=== PATIENT | male | born 1940 | race Caucasian/White ===

== ENCOUNTER 2016-07-12 06:41 | Day surgery (SDC) | payer MEDICARE ==
[~2016-07-12] VITALS: Ht 172.7 cm; Wt 115.9 kg
[~2016-07-12 06:41] MED LIST: BUME1TAB PO; CALCTAB98 PO; CARD240C6 PO; CO Q100C9 PO; FINA5TAB77 PO; LANTINJ SQ; LORA-392 PO; MACR100C PO; METF-324 PO; PARO40TA PO; POTA1080 PO; PRAV20TA PO; SOTA80TA PO; ST JTAB PO; SYNT25TA PO; TAB-TAB PO; TAMS0.4C67 PO; VITA100T5 PO; ZOFR4TAB3 PO
[2016-07-12] MEDS ORDERED: LORA-392 PO (07:29)
[2016-07-12] MEDS ORDERED: FISH1000 (07:29)
[2016-07-12] MEDS ORDERED: SYNT25TA PO (07:29)
[2016-07-12] MEDS ORDERED: ASPI1TAB69 PO (07:29)
[2016-07-12] MEDS ORDERED: POTA1080 (07:29)
[2016-07-12] MEDS ORDERED: CALC600T10 PO (07:29)
[2016-07-12] MEDS ORDERED: ALPR.5 PO (07:29)
[2016-07-12] MEDS ORDERED: CARD240C6 PO (07:29)
[2016-07-12] MEDS ORDERED: LANTINJ SQ ×2 (07:29)
[2016-07-12] MEDS ORDERED: BUME1TAB26 PO (07:29)
[2016-07-12] MEDS ORDERED: MULT1TAB84 PO (07:29)
[2016-07-12] MEDS ORDERED: CO Q100C9 (07:29)
[2016-07-12] MEDS ORDERED: PAXI40TA PO (07:29)
[2016-07-12] MEDS ORDERED: METF1000 PO (07:29)
[2016-07-12] MEDS ORDERED: PRAV20TA2 PO (07:29)
[2016-07-12] MEDS ORDERED: BETA80TA PO (07:29)
[2016-07-12 07:36] VITALS: BP 131/74; PULSE 72; RESP 20; TEMP 97.6; O2SAT 93
[2016-07-12] MEDS ORDERED: SODIUM CHLORIDE 0.9% 1000 ML IV SCH (07:45)
[2016-07-12 07:50] LABS: AUTOMATED NEUTROPHIL # 6.7 TH/MM3 (1.8-7.7); BASOPHIL # 0.1 TH/MM3 (0-0.2); BASOPHIL % 0.9 % (0.0-2.0); EOSINOPHIL # 0.3 TH/MM3 (0-0.4); HEMATOCRIT 41.8 % (39.0-51.0); HEMO FLAGS DIFF FINAL; LYMPH % 20.1 % (9.0-44.0); MEAN CELL VOLUME 88.9 FL (80.0-100.0); MEAN CORPUSCULAR HEMOGLOBIN 30.7 PG (27.0-34.0); MEAN CORPUSCULAR HGB CONC 34.5 % (32.0-36.0); MONO % 7.3 % (0.0-8.0); NEUT % 68.7 % (16.0-70.0); PLATELET COUNT 298 TH/MM3 (150-450); RED CELL DISTRIBUTION WIDTH 13.6 % (11.6-17.2); WHITE BLOOD COUNT 9.7 TH/MM3 (4.0-11.0)
[2016-07-12 08:02] LABS: PROTHROMBIN TIME - PATIENT 10.7 SEC (9.8-11.6)
[2016-07-12 08:03] LABS: APTT (PATIENT) 27.2 SEC (24.3-30.1)
[2016-07-12 08:10] LABS: BICARBONATE 27.6 MEQ/L (21.0-32.0); POTASSIUM 3.4 MEQ/L (3.5-5.1)
[2016-07-12] MEDS ORDERED: fentaNYL CITRATE 250 MCG/5 ML AMP ONE (08:14)
[2016-07-12] MEDS ORDERED: LEVOFLOXACIN 500 MG PREMIX INJ 100 ML IV ONE (08:14)
[2016-07-12] MEDS ORDERED: MIDAZOLAM HCL 5 MG/5 ML VIAL ONE (08:14)
[2016-07-12 09:20] VITALS: BP 138/77; PULSE 68; RESP 18; TEMP 97.9; O2SAT 98
--- NOTE | 2016-07-12 09:26 | PD.RAD ---
Post Procedure Progress Note Pre Procedure Diagnosis: (1) Urinary incontinence Post Procedure Diagnosis: (1) Urinary incontinence Procedure Date: Jul 12, 2016 Supervising Radiologist: César Bernabe Proceduralist/Assist: RT Magalis(R), RT Tyler(R) Anesthesia: Local, Conscious Sedation Plan of Activity Patient to Unit: ROPU Patient Condition: Good See PACS Report for procedural detail/treatment Drainage Procedure Procedure 1 Imaging Guidance: Fluoroscopy Procedure Type: Suprapubic Tube Procedure: Placement Occitan: 22 Drainage: [place] drainage Fluid Description: César Johnson MD Jul 12, 2016 09:26
[2016-07-12 09:35] VITALS: BP 139/87; PULSE 66; RESP 18; O2SAT 97
[2016-07-12 10:05] VITALS: BP 127/77; PULSE 61; RESP 18; O2SAT 93
[2016-07-12 10:35] VITALS: BP 127/78; PULSE 63; RESP 18; O2SAT 95
[2016-07-12] MEDS ORDERED: IOHEXOL 350 MG/ML 50 ML BTL (for RAD DIAG) OTHER ONE (10:45)
--- NOTE | 2016-07-12 11:20 | RADRPT ---
EXAM DATE/TIME: 07/12/2016 08:18 [facility] COMPARISON: No previous studies available for comparison. INDICATIONS : Patient presents with neurogenic bladder in need of suprapubic tube placement . MEDICAL HISTORY : Neurogenic bladder BPH GERD DM OR Renal calculi SURGICAL HISTORY : Cardiac stent Right hip sx Kidney sx ENCOUNTER: Initial ACUITY: 2 months PAIN SCORE: 3/10 LOCATION: Left flank FLUORO TIME: 2.7 minutes IMAGE SERIES: 2 SEDATION TIME: 30 minutes CONTRAST: 10 cc Omnipaque 350 (iohexol) Suprapubic tube MEDICATION(S): 1.) 250 mcg fentanyl (Sublimaze) IV 2.) 500 mg levofloxacin (Levaquin) IV 3.) 5 mg midazolam (Versed) IV DEVICE(S): 1.) Lincoln catheter 16FR PROCEDURE : 1. Ultrasound localization of the bladder. 2. Suprapubic catheter placement. 3. Conscious sedation with continuous EKG and oximetry monitoring. The risks, benefits and alternatives to the procedure were explained and verbal and written consent w as obtained. The site was prepped in sterile fashion. Full sterile technique was used, including ca p, mask, sterile gloves and gown and a large sterile sheet. Hand hygiene and 2% chlorhexidine and/or betadine/alcohol prep was utilized per protocol for cutaneous antisepsis. The skin and subcutaneous tissues were infiltrated with local anesthetic solution. Utilizing ultrasound and fluoroscopic guidance the urinary bladder was localized. Just above the pub ic symphysis in the midline a dermatotomy was made and serial dilatation was performed to accept a 14 Nigerian Lincoln catheter. The balloon was inflated and positive contrast was injected to document intr aluminal position. Conscious sedation was performed with the prescribed dosages and duration as above in the presence of an independent trained radiology nurse to assist in the monitoring of the patient. EKG and oximetry remained stable throughout the procedure. The patient tolerated the procedure well and there were n o complications. The patient was sent to post anesthesia recovery in stable condition. CONCLUSION: Uncomplicated suprapubic catheter placement. César Bernabe MD on July 12, 2016 at 11:18 Board Certified Radiologist. This report was verified electronically.
== END 2016-07-12 11:49 | disposition home or self-care (01) ==
LOC: HROP 06:41 → HRIP 06:46 → HROP 11:49
PROVIDERS: ATTEND Urology
DX: R32 Unspecified urinary incontinence (principal); N31.9 Neuromuscular dysfunction of bladder, unspecified; N40.0 Benign prostatic hyperplasia without lower urinary tract symptoms; K21.9 Gastro-esophageal reflux disease without esophagitis; E11.9 Type 2 diabetes mellitus without complications; I48.91 Unspecified atrial fibrillation; I10 Essential (primary) hypertension; Z87.442 Personal history of urinary calculi; Z95.5 Presence of coronary angioplasty implant and graft
CPT/HCPCS: 51102; 77002; 80048; 85025; 85610; 85730; 99152; 99153; C1769; C1894; J1956; J2250; J3010; J7030; Q9967; 75989

== ENCOUNTER 2016-07-13 07:39 | Day surgery (SDC) | payer MEDICARE ==
[~2016-07-13] VITALS: Ht 172.7 cm; Wt 115.9 kg
[~2016-07-13 07:39] MED LIST changes: +ALPR.5 PO; +ASPI1TAB69 PO; +BETA80TA PO; -BUME1TAB PO; +BUME1TAB26 PO; +CALC600T10 PO; -CALCTAB98 PO; +CO Q100C9; -CO Q100C9 PO; -FINA5TAB77 PO; +FISH1000; -MACR100C PO; -METF-324 PO; +METF1000 PO; +MULT1TAB84 PO; -PARO40TA PO; +PAXI40TA PO; +POTA1080; -POTA1080 PO; -PRAV20TA PO; +PRAV20TA2 PO; -SOTA80TA PO; -ST JTAB PO; -TAB-TAB PO; -TAMS0.4C67 PO; -VITA100T5 PO; -ZOFR4TAB3 PO
[2016-07-13 07:59] VITALS: BP 124/69; PULSE 72; RESP 20; TEMP 98.8; O2SAT 94
[2016-07-13] MEDS ORDERED: SODIUM CHLOR 0.9% 1000 ML INJ 1,000 ML IV SCH (08:15)
[2016-07-13] MEDS ORDERED: LEVOFLOXACIN 500 MG PREMIX INJ 100 ML IV ONE (09:32)
[2016-07-13] MEDS ORDERED: MIDAZOLAM HCL 5 MG/5 ML VIAL ONE (09:33)
[2016-07-13] MEDS ORDERED: fentaNYL CITRATE 250 MCG/5 ML AMP ONE (09:33)
[2016-07-13] MEDS ORDERED: IOHEXOL 350 MG/ML 50 ML BTL (for RAD DIAG) ONE (10:51)
[2016-07-13 10:53] VITALS: BP 109/49; PULSE 65; RESP 16; TEMP 97.3; O2SAT 93
--- NOTE | 2016-07-13 10:56 | PD.RAD ---
Post Procedure Progress Note Pre Procedure Diagnosis: (1) Urinary incontinence Post Procedure Diagnosis: (1) Urinary incontinence Procedure Date: Jul 13, 2016 Supervising Radiologist: César Bernabe Proceduralist/Assist: Jeffrey Nguyễn RT(R), RT Tyler(R) Anesthesia: Local, Conscious Sedation Plan of Activity Patient to Unit: ROPU Patient Condition: Good See PACS Report for procedural detail/treatment Drainage Procedure Procedure 1 Imaging Guidance: Fluoroscopy Procedure Type: Suprapubic Tube Procedure: Placement Belarusian: 16 Fluid Description: Clear, Bloody Additional Detail: Initial suprapubic placed on 07/12 fell out because of spontaneous balloon deflation. New parra inserted. César Bernabe MD Jul 13, 2016 10:56
[2016-07-13 11:08] VITALS: BP 112/70; PULSE 65; RESP 19; O2SAT 95
[2016-07-13 11:38] VITALS: BP 110/57; PULSE 61; RESP 19; O2SAT 95
[2016-07-13 12:08] VITALS: BP 99/52; PULSE 52; RESP 18; O2SAT 99
--- NOTE | 2016-07-13 12:37 | RADRPT ---
EXAM DATE/TIME: 07/13/2016 10:46 [facility] COMPARISON: SUPRAPUBIC TUBE PLACEMENT, July 12, 2016, 8:18. INDICATIONS : Patient with neurogenic bladder in need of suprapubic tube placement. MEDICAL HISTORY : BPH, Renal stones, UTI, Hypothyroid, Diabetes, [place], GERD SURGICAL HISTORY : Cardiac stent, Right hip surgery, Right kidney surgery ENCOUNTER: Subsequent ACUITY: 2 months PAIN SCORE: 0/10 FLUORO TIME: 1.7 minutes IMAGE SERIES: 3 SEDATION TIME: 30 minutes CONTRAST: 10 cc Omnipaque 350 (iohexol) MEDICATION(S): 1.) 5 mg midazolam (Versed) IV 2.) 250 mcg fentanyl (Sublimaze) IV Prophylactic antibiotics were administered with appropriate pre-procedure timing. Vancomycin within 2 hrs of procedure, Ancef (or alternative) within 1 hr of procedure. DEVICE(S): 1.) Lincoln catheter 16F PROCEDURE : 1. Ultrasound localization of the bladder. 2. Suprapubic catheter placement. 3. Conscious sedation with continuous EKG and oximetry monitoring. The risks, benefits and alternatives to the procedure were explained and verbal and written consent w as obtained. The site was prepped in sterile fashion. Full sterile technique was used, including ca p, mask, sterile gloves and gown and a large sterile sheet. Hand hygiene and 2% chlorhexidine and/or betadine/alcohol prep was utilized per protocol for cutaneous antisepsis. The skin and subcutaneous tissues were infiltrated with local anesthetic solution. Utilizing ultrasound and fluoroscopic guidance the urinary bladder was localized. Just above the pub ic symphysis in the midline a dermatotomy was made and serial dilatation was performed to accept a 14 Georgian Lincoln catheter. The balloon was inflated and positive contrast was injected to document intr aluminal position. Conscious sedation was performed with the prescribed dosages and duration as above in the presence of an independent trained radiology nurse to assist in the monitoring of the patient. EKG and oximetry remained stable throughout the procedure. The patient tolerated the procedure well and there were n o complications. The patient was sent to post anesthesia recovery in stable condition. CONCLUSION: Uncomplicated suprapubic catheter placement. César Bernabe MD on July 13, 2016 at 12:34 Board Certified Radiologist. This report was verified electronically.
[2016-07-13 14:00] VITALS: BP 116/59; PULSE 59; RESP 19; O2SAT 99
[2016-07-13] MEDS ORDERED: BUMETANIDE 1 MG TAB PO ONE (14:00)
== END 2016-07-13 14:25 | disposition home or self-care (01) ==
LOC: HROP 07:39 → HRIP 07:39 → HROP 14:25
PROVIDERS: ATTEND Radiology Diagnostic Radiology
DX: N31.9 Neuromuscular dysfunction of bladder, unspecified (principal); R32 Unspecified urinary incontinence; N40.0 Benign prostatic hyperplasia without lower urinary tract symptoms; K21.9 Gastro-esophageal reflux disease without esophagitis; E11.9 Type 2 diabetes mellitus without complications; E03.9 Hypothyroidism, unspecified; Z87.442 Personal history of urinary calculi; Z95.5 Presence of coronary angioplasty implant and graft
CPT/HCPCS: 51705; 77002; 99152; 99153; C1769; C1894; J1956; J2250; J3010; J7030; Q9967; 75989

== ENCOUNTER 2016-07-16 15:53 | Emergency (ER) | payer MEDICARE ==
[~2016-07-16] VITALS: Ht 170.2 cm; Wt 113.6 kg
[2016-07-16 15:56] VITALS: BP 167/86; PULSE 80; RESP 20; TEMP 97.3; O2SAT 97
--- NOTE | 2016-07-16 16:27 | PD ---
Physical Exam Date Seen by Provider: Jul 16, 2016 Time Seen by Provider: 16:24 Narrative 76 y/o male with recent Supra pubic urinary catheter placement on July [address] Bernabe. Patient reports that the Catheter appears to cut and leaking. The catheter is stitched in place, so Home Health nurse was unable to replace it. Patient has no pain or fever. V/S Stable Patient awaiting bed placement. Data Data Last Documented VS Vital Signs Date Time Temp Pulse Resp B/P Pulse Ox O2 Delivery O2 Flow Rate FiO2 07/16/16 15:56 97.3 80 20 167/86 97 Room Air [facility] Medical Record Reviewed: Yes Supervised Visit with JEANNA: Yes Condition: Stable Olayinka Bocanegra Jul 16, 2016 16:27
--- NOTE | 2016-07-16 18:52 | PD ---
HPI Chief Complaint: Infection Control Coordinator Problem Time Seen by Provider: 16:51 Travel History International Travel<30 days: No Contact w/Intl Traveler<30days: No Traveled to known affect area: No History of Present Illness HPI Patient is a 76 year old male who comes in because his accidently cut his suprapubic catheter. He had the catheter placed July 12, and then replaced July 13 because the balloon had not been inflated. His was changing the dressing today and was trying to cut the gauze around the catheter and accidentally cut the catheter itself. There is still a stump in place and it is draining urine. He has no complaints at this time. PFSH Past Medical History Hx Anticoagulant Therapy: Yes Arthritis: Yes Atrial Fibrillation: Yes Blood Disorders: No Anxiety: Yes Depression: Yes (TAKES PAXIL) Cancer: No Cardiovascular Problems: Yes ([place] 2006, ) Diabetes: Yes (TYPE 2 ) Patient Takes Glucophage: Yes Endocrine: Yes Gastrointestinal Disorders: Yes GERD: Yes Genitourinary: Yes (KIDNEY PROBLEMS SINCE CHILDHOOD ) Hypertension: Yes Immune Disorder: No Kidney Stones: Yes Musculoskeletal: Yes Neurologic: Yes Psychiatric: Yes Reproductive: No Respiratory: Yes Sleep Apnea: Yes Thyroid Disease: Yes (HYPOTHYROIDISM) Tetanus Vaccination: > 5 Years Past Surgical History Abdominal Surgery: No Cardiac Surgery: Yes Coronary Stent: Yes Ear Surgery: No Endocrine Surgery: No Eye Surgery: No Genitourinary Surgery: Yes (MULTIPLE KIDNEY SURGERIES ) Gynecologic Surgery: No Joint Replacement: Yes (RIGHT HIP) Oral Surgery: No Thoracic Surgery: No Other Surgery: Yes Social History Alcohol Use: Yes (RARELY) Tobacco Use: No Substance Use: No Allergies-Medications (Allergen,Severity, Reaction): Coded Allergies: Dye, Prep (Verified Allergy, Severe, RASH, 07/16/16) Sulfa (Verified Allergy, Severe, 07/16/16) Amiodarone (Verified Allergy, Intermediate, Hives, 07/16/16) Hctz (Verified Allergy, Intermediate, Hives, 07/16/16) Citalopram (Verified Allergy, Mild, Dizziness, 07/16/16) Levaquin (Verified Allergy, Mild, 07/16/16) Triamterene (Verified Allergy, Mild, Nausea/Vomiting, 07/16/16) Penicillin (Verified Allergy, Unknown, RASH, 07/16/16) Simvastatin (Verified Allergy, Unknown, RASH, 07/16/16) Uncoded Allergies: IVP DYE (Allergy, Unknown, 12/03/02) NUCLEAR MED INJECTION (Allergy, Unknown, 02/12/04) Reported Meds & Prescriptions Reported Meds & Active Scripts Active Reported Fish Oil ([place]-3 Fatty Acids) 1,000 Mg Cap DAILY Calcium + D3 (Calcium Carbonate-Cholecalciferol) 600-200 Mg-Unit Tab 1 Tab PO DAILY Co Q 10 (Coenzyme Q10 (Ubidecarenone)) 100 Mg Cap DAILY Multivitamin Adults (Multiple Vitamins W/ Minerals) 1 Tab 1 Tab PO DAILY Xanax (Alprazolam) 0.5 Mg Tab 0.5 Mg PO Q8H PRN Ativan (Lorazepam) 0.5 Mg Tab 0.5 Mg PO Q6H PRN Potassium Citrate ER 1,080 Mg Tab 3,300 DAILY Lantus Solostar Pen Inj (Insulin Glargine) 300 Unit/3 Ml Pen 25 Units SQ HS Lantus Solostar Pen Inj (Insulin Glargine) 300 Unit/3 Ml Pen 28 Units SQ DAILY NEB Bumex (Bumetanide) 1 Mg Tab 1 Mg PO DAILY Pravastatin 20 Mg Tab 20 Mg PO DAILY Aspirin 81 Mg Tabdr 81 Mg PO DAILY Paxil (Paroxetine HCl) 40 Mg Tab 40 Mg PO DAILY Betapace (Sotalol HCl) 80 Mg Tab 80 Mg PO BID Cardizem CD 24 HR (Diltiazem CD 24 HR) 240 Mg Caper 240 Mg PO DAILY Synthroid (Levothyroxine Sodium) 25 Mcg Tab 25 Mcg PO DAILY Metformin (Metformin HCl) 1,000 Mg Tab 1,000 Mg PO BIDPC With meals Review of Systems General / Constitutional: No: Fever, Chills HENT: No: Headaches Cardiovascular: No: Chest Pain or Discomfort Respiratory: No: Shortness of Breath Gastrointestinal: No: Abdominal Pain Genitourinary: No: Decreased Urinary Output, Oliguria Skin: No Rash, No Change in Pigmentation Neurologic: No: Weakness Physical Exam Narrative GENERAL: Awake and alert, in no acute distress. SKIN: Focused skin assessment warm/dry. HEAD: Atraumatic. Normocephalic. EYES: Pupils equal and round. No scleral icterus. ENT: Mucous membranes pink and moist. NECK: Trachea midline. No JVD. CARDIOVASCULAR: Regular rate and rhythm. No murmur appreciated. RESPIRATORY: No accessory muscle use. Clear to auscultation. Breath sounds equal bilaterally. GASTROINTESTINAL: Abdomen soft, non-tender, nondistended. Portion of the suprapubic catheter still in place, sutured to his skin. There is no abnormalities to the skin around the catheter. PSYCHIATRIC: Appropriate mood and affect; insight and judgment normal. Data Data Last Documented VS Vital Signs Date Time Temp Pulse Resp B/P Pulse Ox O2 Delivery O2 Flow Rate FiO2 07/16/16 16:49 17 99 Room Air 07/16/16 15:56 97.3 80 167/86 Orders Suprapubic Tube Exchange (07/16/16 ) [facility] Medical Decision Making Medical Screen Exam Complete: Yes Emergency Medical Condition: Yes Medical Record Reviewed: Yes Differential Diagnosis Suprapubic catheter malfunction vs UTI vs encounter for catheter replacement. Narrative Course Patient is a 76 year old male who comes in because his accidently cut his suprapubic catheter. He has no complaints. IR consulted to exchange the catheter that was just placed 2 days ago. Patient will be discharged after exchange. Diagnosis Primary Impression: Catheter (urine) change required Condition: Stable Yvette Preston MD Jul 16, 2016 18:52
[2016-07-16] MEDS ORDERED: LORazepam 2 MG/ML VIAL ONE (20:29)
--- NOTE | 2016-07-16 20:56 | PD.RAD ---
Post Procedure Progress Note Pre Procedure Diagnosis: (1) Damaged suprapubic catheter Post Procedure Diagnosis: (1) Damaged suprapubic catheter Procedure Date: Jul 16, 2016 Supervising Radiologist: Juve Maxwell Proceduralist/Assist: Aylin Champion RT(R)(), Lydia Healy RT(R)(CV) Anesthesia: Local Plan of Activity Patient to Unit: Other (ED) Patient Condition: Good See PACS Report for procedural detail/treatment Drainage Procedure Procedure 1 Imaging Guidance: Fluoroscopy Procedure Type: Suprapubic Tube Procedure: Exchange Drainage: [place] drainage Fluid Description: Yellow Findings: Existing tube accidentally cut by patient's . Replaced over a wire Juve Maxwell MD Jul 16, 2016 20:56
[2016-07-16] MEDS ORDERED: IOHEXOL 350 MG/ML 50 ML BTL (for RAD DIAG) ONE (20:59)
--- NOTE | 2016-07-18 08:26 | RADRPT ---
EXAM DATE/TIME: 07/16/2016 20:33 [facility] COMPARISON: No previous studies available for comparison. INDICATIONS : Supra pubic tube cut. Needs to replaced MEDICAL HISTORY : 1. BPH 2. renal stones 3. UTI 4. DM 5. HI 6. GERD SURGICAL HISTORY : 1. coronary stents 2. RT hip surgery 3. Rt kidney surgery ENCOUNTER: [facility] ACUITY: 1 day PAIN SCORE: 0/10 FLUORO TIME: 0.7 minutes IMAGE SERIES: 2 CONTRAST: 15 cc Suprapubic tube DEVICE(S): 1.) Lincoln catheter 16 fr PROCEDURE : 1. Suprapubic catheter change. The risks, benefits and alternatives to the procedure were explained and verbal and written consent w as obtained. The site was prepped in sterile fashion. Full sterile technique was used, including cap, mask, steril e gloves and gown and a large sterile sheet. Hand hygiene and 2% chlorhexidine and/or betadine/alcoho l prep was utilized per protocol for cutaneous antisepsis. The skin and subcutaneous tissues were infiltrated with local anes thetic solution. The excised suprapubic Lincoln catheter remained secured to the skin surface with a 2-0 silk suture. Th e lumen was cannulated with a 10 German dilator to facilitate contrast and saline injection of the ur inary bladder. With the bladder partially distended, an 035 Glidewire was curled into the bladder lum en. The anchoring suture was excised in the damaged tube removed. The new prescribed catheter was the n advanced over the wire and into the urinary bladder. The anchoring balloon was insufflated with 10 cc of saline. Per patient request, no conscious sedation or IV analgesics was utilized. EKG and oximetry remained stable throughout the procedure. The patient tolerated the procedure well and there were no complicat ions. The patient was sent to post anesthesia recovery in stable condition. CONCLUSION: Uncomplicated suprapubic catheter exchange. Juve Maxwell MD on July 18, 2016 at 8:20 Board Certified Radiologist. This report was verified electronically.
== END 2016-07-16 21:27 | disposition home or self-care (01) ==
LOC: NEPC 15:53
DX: T83.090A Other mechanical complication of cystostomy catheter, initial encounter (principal); I48.91 Unspecified atrial fibrillation; E11.9 Type 2 diabetes mellitus without complications; I10 Essential (primary) hypertension; E03.9 Hypothyroidism, unspecified; G47.30 Sleep apnea, unspecified; Z87.442 Personal history of urinary calculi; K21.9 Gastro-esophageal reflux disease without esophagitis; I25.2 Old myocardial infarction; Z79.01 Long term (current) use of anticoagulants
CPT/HCPCS: 51705; 75984; 96372; 99283; C1769; J2060; Q9967

== ENCOUNTER → 2016-09-29 | Outpatient (CLI) | payer MEDICARE ==
[~2016-09-29] MED LIST changes: +ASPI81CH CHEW; +BUME1TAB PO; +ONCETAB7; +PAXI30TA7 PO
[2016-09-29 13:13] LABS: AUTOMATED NEUTROPHIL # 6.3 TH/MM3 (1.8-7.7); BASOPHIL % 0.4 % (0.0-2.0); EOSINOPHIL # 0.4 TH/MM3 (0-0.4); EOSINOPHIL % 4.6 % (0.0-4.0); HEMATOCRIT 39.2 % (39.0-51.0); HEMO FLAGS DIFF FINAL; LYMPH % 19.3 % (9.0-44.0); LYMPHOCYTE # 1.8 TH/MM3 (1.0-4.8); MEAN CELL VOLUME 89.5 FL (80.0-100.0); MEAN CORPUSCULAR HEMOGLOBIN 30.9 PG (27.0-34.0); MEAN CORPUSCULAR HGB CONC 34.5 % (32.0-36.0); MONO % 6.7 % (0.0-8.0); PLATELET COUNT 315 TH/MM3 (150-450); RED BLOOD COUNT 4.38 MIL/MM3 (4.50-5.90); WHITE BLOOD COUNT 9.2 TH/MM3 (4.0-11.0)
[2016-09-29 13:14] LABS: ANION GAP 9 MEQ/L (5-15); AST (GOT) 19 U/L (15-37); BICARBONATE 28.4 MEQ/L (21.0-32.0); BLOOD UREA NITROGEN 14 MG/DL (7-18); CHLORIDE 103 MEQ/L (98-107); GLOMERULAR FILTRATION RATE 80 ML/MIN (>89); GLUCOSE,FASTING 87 MG/DL (74-99); POTASSIUM 3.8 MEQ/L (3.5-5.1); SODIUM (NA) 140 MEQ/L (136-145)
[2016-09-29 13:26] LABS: ALKALINE PHOSPHATASE 61 U/L (45-117); ALT (GPT) 15 U/L (12-78); HDL CHOLESTEROL 46.2 MG/DL (40.0-60.0); LDL CHOLESTEROL 78 MG/DL (0-99); TOTAL BILIRUBIN ADULT 0.4 MG/DL (0.2-1.0)
== END ==
LOC: PLAB 11:02
PROVIDERS: ATTEND Family Medicine
DX: I25.10 Atherosclerotic heart disease of native coronary artery without angina pectoris (principal); I10 Essential (primary) hypertension; E03.9 Hypothyroidism, unspecified; E78.2 Mixed hyperlipidemia
CPT/HCPCS: 36415; 80053; 80061; 84443; 85025

== ENCOUNTER 2016-10-04 20:04 | Emergency (ER) | payer MEDICARE ==
[~2016-10-04] VITALS: Ht 172.7 cm; Wt 105.0 kg
[~2016-10-04 20:04] MED LIST changes: -ASPI81CH CHEW; -BUME1TAB PO; -ONCETAB7; -PAXI30TA7 PO
[2016-10-04 20:15] VITALS: BP 126/68; PULSE 98; RESP 17; TEMP 98.3; O2SAT 94
[2016-10-04] MEDS ORDERED: ONCETAB7 (20:27)
[2016-10-04] MEDS ORDERED: BUME1TAB PO (20:27)
[2016-10-04] MEDS ORDERED: PAXI30TA7 PO (20:27)
[2016-10-04] MEDS ORDERED: ASPI81CH CHEW (20:27)
--- NOTE | 2016-10-04 20:55 | PD ---
HPI Chief Complaint: Complaint Time Seen by Provider: 20:12 Travel History International Travel<30 days: No Contact w/Intl Traveler<30days: No Traveled to known affect area: No History of Present Illness HPI Is a 76-year-old man who presents to the emergency room because a suprapubic catheter came out. He currently has a neurogenic bladder, has had a suprapubic catheter since at least June, and has had a, multiple times before. They report that it was changed for routine change today by home health nursing, and then came out. He has some chronic wound around the area. It sounds like he has a urologist but was placed by interventional radiology and so it is not really being managed by anybody. He has a primary doctor as well. We'll recommend follow-up with wound care. History Past Medical History Narrative Medical Neurogenic bladder BPH Renal stones UTI Diabetes CAD, history of [place], history of stent GERD Tetanus Vaccination: Unknown Influenza Vaccination: No Social History Alcohol Use: Yes (RARELY) Tobacco Use: No Allergies-Medications (Allergen,Severity, Reaction): Coded Allergies: Dye, Prep (Verified Allergy, Severe, RASH, 10/04/16) Sulfa (Verified Allergy, Severe, 10/04/16) Amiodarone (Verified Allergy, Intermediate, Hives, 10/04/16) Hctz (Verified Allergy, Intermediate, Hives, 10/04/16) Citalopram (Verified Allergy, Mild, Dizziness, 10/04/16) Levaquin (Verified Allergy, Mild, 10/04/16) Triamterene (Verified Allergy, Mild, Nausea/Vomiting, 10/04/16) Contrast Media (Verified Allergy, Unknown, 10/04/16) Penicillin (Verified Allergy, Unknown, RASH, 10/04/16) Simvastatin (Verified Allergy, Unknown, RASH, 10/04/16) Reported Meds & Prescriptions Reported Meds & Active Scripts Active Reported Once Daily (Multivitamin) 1 Each Tablet Bumetanide 1 Mg Tab 1 Mg PO DAILY Aspirin 81 Mg Chew 81 Mg CHEW DAILY Paxil (Paroxetine HCl) 30 Mg Tab 40 Mg PO DAILY Fish Oil ([place]-3 Fatty Acids) 1,000 Mg Cap DAILY Calcium + D3 (Calcium Carbonate-Cholecalciferol) 600-200 Mg-Unit Tab 1 Tab PO DAILY Co Q 10 (Coenzyme Q10 (Ubidecarenone)) 100 Mg Cap DAILY Xanax (Alprazolam) 0.5 Mg Tab 0.5 Mg PO Q8H PRN Ativan (Lorazepam) 0.5 Mg Tab 0.5 Mg PO Q6H PRN Potassium Citrate ER 1,080 Mg Tab 3,300 DAILY Lantus Solostar Pen Inj (Insulin Glargine) 300 Unit/3 Ml Pen 25 Units SQ HS Lantus Solostar Pen Inj (Insulin Glargine) 300 Unit/3 Ml Pen 28 Units SQ DAILY NEB Pravastatin 20 Mg Tab 20 Mg PO DAILY Betapace (Sotalol HCl) 80 Mg Tab 80 Mg PO BID Cardizem CD 24 HR (Diltiazem CD 24 HR) 240 Mg Caper 240 Mg PO DAILY Synthroid (Levothyroxine Sodium) 25 Mcg Tab 25 Mcg PO DAILY Metformin (Metformin HCl) 1,000 Mg Tab 1,000 Mg PO BIDPC With meals Physical Exam Narrative GENERAL: Obese debilitated appearing 76-year-old man SKIN: Warm and dry. CARDIOVASCULAR: Warm and well perfused. RESPIRATORY: Normal rate and effort. ABDOMEN: Obese abdomen. Super pubic catheter in the suprapubic abdomen. Continue treatment in the intertriginous fold of his pannus. There is some local irritation and an approximately 2 x 1 cm area of chronic appearing ulceration. There is a lot of MUSCULOSKELETAL: No obvious deformities. NEUROLOGICAL: Awake and alert. No gross deficits. Data Data Last Documented VS Vital Signs Date Time Temp Pulse Resp B/P Pulse Ox O2 Delivery O2 Flow Rate FiO2 10/04/16 20:15 98.3 98 17 126/68 94 MDM Medical Decision Making Medical Screen Exam Complete: Yes Emergency Medical Condition: Yes Differential Diagnosis Superpubic catheter dysfunction, displacement, chronic wound, other Narrative Course medical decision-making new para this 76 and a man presents emergent department a chronic wound to the super pubic catheter site and super pubic catheter dislodgment. He looks well. He was easily replaced by myself at the bedside. Recommend follow-up with wound care, primary doctor, continue catheter care. I also increased the size of a 1618 Estonian catheter try to reduce the amount of leakage to reduce maceration and wetness in the wound site. Procedures Procedure Narrative Superpubic catheter replacement: Area was prepped with Betadine. 18 Estonian catheter was introduced easily. Urine sediment return immediately. Patient tolerated well. Diagnosis Primary Impression: Catheter (urine) change required Referrals: [facility] 1 week Additional Instructions: Follow-up with wound care in 1 week. Return to the emergency department for any new or worsening symptoms. Follow-up with your primary doctor in the next 1-2 weeks as well. Disposition: 01 DISCHARGE HOME Condition: Stable Mickey Vincent MD Oct 04, 2016 20:55
== END 2016-10-04 21:26 | disposition home or self-care (01) ==
LOC: NEPC 20:04
DX: Z46.82 Encounter for fitting and adjustment of non-vascular catheter (principal); N31.9 Neuromuscular dysfunction of bladder, unspecified; E11.9 Type 2 diabetes mellitus without complications; K21.9 Gastro-esophageal reflux disease without esophagitis; N40.0 Benign prostatic hyperplasia without lower urinary tract symptoms; Z87.442 Personal history of urinary calculi; I25.2 Old myocardial infarction; Z79.4 Long term (current) use of insulin
CPT/HCPCS: 51705

== ENCOUNTER → 2017-03-22 | Outpatient (CLI) | payer MEDICARE ==
[~2017-03-22] MED LIST changes: +ASPI-516 CHEW; -ASPI1TAB69 PO; +BUME1TAB PO; -BUME1TAB26 PO; -MULT1TAB84 PO; +ONCETAB7; +PAXI30TA7 PO; -PAXI40TA PO
[2017-03-22 16:39] LABS: ALBUMIN 3.3 GM/DL (3.4-5.0); ALT (GPT) 18 U/L (12-78); AST (GOT) 17 U/L (15-37); AUTOMATED NEUTROPHIL # 5.4 TH/MM3 (1.8-7.7); BASOPHIL % 0.4 % (0.0-2.0); BICARBONATE 29.7 MEQ/L (21.0-32.0); BLOOD UREA NITROGEN 19 MG/DL (7-18); CALCIUM 8.8 MG/DL (8.5-10.1); CHLORIDE 106 MEQ/L (98-107); CHOLESTEROL 150 MG/DL (120-200); CREATININE 1.07 MG/DL (0.60-1.30); EOSINOPHIL # 0.3 TH/MM3 (0-0.4); EOSINOPHIL % 3.7 % (0.0-4.0); GLOMERULAR FILTRATION RATE 67 ML/MIN (>89); GLUCOSE,FASTING 130 MG/DL (74-99); HEMATOCRIT 40.8 % (39.0-51.0); HEMOGLOBIN 13.9 GM/DL (13.0-17.0); LYMPH % 20.5 % (9.0-44.0); LYMPHOCYTE # 1.6 TH/MM3 (1.0-4.8); MEAN CELL VOLUME 92.2 FL (80.0-100.0); MEAN CORPUSCULAR HEMOGLOBIN 31.3 PG (27.0-34.0); MEAN PLATELET VOLUME 7.6 FL (7.0-11.0); MONO % 6.4 % (0.0-8.0); MONOCYTE # 0.5 TH/MM3 (0-0.9); PLATELET COUNT 298 TH/MM3 (150-450); RED BLOOD COUNT 4.43 MIL/MM3 (4.50-5.90); RED CELL DISTRIBUTION WIDTH 13.7 % (11.6-17.2); SODIUM (NA) 141 MEQ/L (136-145); WHITE BLOOD COUNT 7.8 TH/MM3 (4.0-11.0)
[2017-03-22 16:49] LABS: ALKALINE PHOSPHATASE 58 U/L (45-117); CHOLESTEROL/ HDL RATIO 3.52 RATIO; HDL CHOLESTEROL 42.6 MG/DL (40.0-60.0); LDL CHOLESTEROL 81 MG/DL (0-99); TOTAL BILIRUBIN ADULT 0.4 MG/DL (0.2-1.0); TOTAL PROTEIN 7.2 GM/DL (6.4-8.2); TRIGLYCERIDES 133 MG/DL (42-150)
== END ==
LOC: PLAB 11:50
PROVIDERS: ATTEND Family Medicine
DX: M62.81 Muscle weakness (generalized) (principal); E11.65 Type 2 diabetes mellitus with hyperglycemia; I10 Essential (primary) hypertension; E78.2 Mixed hyperlipidemia; I25.10 Atherosclerotic heart disease of native coronary artery without angina pectoris
CPT/HCPCS: 36415; 80053; 80061; 84443; 85025

== ENCOUNTER → 2017-08-22 | Outpatient (CLI) | payer MEDICARE ==
[~2017-08-22] MED LIST changes: -BUME1TAB PO
[2017-08-22 11:56] LABS: HEMATOCRIT 38.8 % (39.0-51.0); HEMOGLOBIN 12.9 GM/DL (13.0-17.0); MEAN CELL VOLUME 90.7 FL (80.0-100.0); MEAN CORPUSCULAR HEMOGLOBIN 30.2 PG (27.0-34.0); MEAN CORPUSCULAR HGB CONC 33.3 % (32.0-36.0); MEAN PLATELET VOLUME 7.4 FL (7.0-11.0); PLATELET COUNT 381 TH/MM3 (150-450); RED BLOOD COUNT 4.28 MIL/MM3 (4.50-5.90); RED CELL DISTRIBUTION WIDTH 12.2 % (11.6-17.2); WHITE BLOOD COUNT 10.3 TH/MM3 (4.0-11.0)
[2017-08-22 11:57] LABS: CALCIUM 9.1 MG/DL (8.5-10.1)
[2017-08-22 11:58] LABS: BICARBONATE 30.5 MEQ/L (21.0-32.0)
[2017-08-22 12:01] LABS: CREATININE 1.2 MG/DL (0.60-1.30)
== END ==
LOC: PLAB 10:47
PROVIDERS: ATTEND Urology
DX: E11.8 Type 2 diabetes mellitus with unspecified complications (principal)
CPT/HCPCS: 36415; 80048; 85027